=== PATIENT | male | born 1985 | race Caucasian/White ===

== ENCOUNTER 2024-02-19 10:14 | Emergency (ER) | payer BC ==
[~2024-02-19] VITALS: Ht 177.8 cm; Wt 93.7 kg
[2024-02-19 10:28] VITALS: BP 138/86; PULSE 95; RESP 18; TEMP 97.8; O2SAT 98
== END 2024-02-19 12:18 | disposition home or self-care (01) ==
LOC: ER 10:15
DX: S52.501A Unspecified fracture of the lower end of right radius, initial encounter for closed fracture (principal); M25.531 Pain in right wrist; Z88.1 Allergy status to other antibiotic agents; Z88.2 Allergy status to sulfonamides; W19.XXXA Unspecified fall, initial encounter; Y93.89 Activity, other specified; Y92.89 Other specified places as the place of occurrence of the external cause; Y99.8 Other external cause status
CPT/HCPCS: 29125; 73090; 73110; 73130; 99284; A6446; A6449

== ENCOUNTER 2024-03-10 03:11 | Emergency (ER) | payer BC ==
[~2024-03-10] VITALS: Ht 180.3 cm; Wt 93.2 kg
[2024-03-10] MEDS ORDERED: HYDR-3973 PO (03:57)
[2024-03-10] MEDS: HYDROcodone/acetaminophen 10/325mg tab PO ONE (04:08)
[2024-03-10 04:26] VITALS: BP 129/89; PULSE 73; RESP 16; TEMP 97.8; O2SAT 98
== END 2024-03-10 04:20 | disposition home or self-care (01) ==
LOC: ER 03:12
DX: S22.32XA Fracture of one rib, left side, initial encounter for closed fracture (principal); Z88.1 Allergy status to other antibiotic agents; Z88.2 Allergy status to sulfonamides; Z79.899 Other long term (current) drug therapy; W19.XXXA Unspecified fall, initial encounter; Y93.89 Activity, other specified; Y92.89 Other specified places as the place of occurrence of the external cause; Y99.8 Other external cause status
CPT/HCPCS: 71101; 99284